=== PATIENT | male | born 1940 | race Caucasian/White ===

== ENCOUNTER 2021-12-31 08:01 | Emergency (ER) | payer MEDICARE, OTHER ==
[2021-12-31 08:48] LABS: HEMOGLOBIN 14.5 gm/dl (14.0-17.5); RED BLOOD COUNT 4.67 M/UL (4.20-5.50)
[2021-12-31 09:20] LABS: BUN/CREATININE RATIO 26 (0-10)
[2021-12-31] MEDS ORDERED: COLACE 100MG C100 MG PO (12:54)
== END 2021-12-31 13:10 | disposition home or self-care (01) ==
LOC: ER1 08:01
PROVIDERS: Physician Assistant
DX: R10.12 Left upper quadrant pain (principal); R07.81 Pleurodynia; E11.9 Type 2 diabetes mellitus without complications; I10 Essential (primary) hypertension; F17.210 Nicotine dependence, cigarettes, uncomplicated; Z20.822 Contact with and (suspected) exposure to COVID-19
CPT/HCPCS: 71045; 80053; 81001; 82550; 82553; 83605; 83690; 84484; 85025; 87086; 93005; 99285; J1885; Q9967; U0002